=== PATIENT | male | born 1940 ===

== ENCOUNTER 2018-07-10 19:33 | Emergency (ER) | payer MEDICARE ==
[2018-07-10 20:28] VITALS: BP 176/88; PULSE 93; RESP 18; TEMP 98.7; O2SAT 95
[2018-07-10 20:38] LABS: URINE BILIRUBIN NEGATIVE (NEGATIVE); URINE BLOOD NEGATIVE (NEGATIVE); URINE CLARITY Clear (Clear); URINE COLOR Straw (YELLOW); URINE GLUCOSE (UA) NORMAL (Normal); URINE LEUKOCYTE ESTERASE TRACE Leu/uL (Negative); URINE PROTEIN NEGATIVE (NEGATIVE); URINE UROBILINOGEN NORMAL mg/dL (0.2-1.0)
--- NOTE | 2018-07-10 20:49 | C.PDOC ---
History Of Present Illness 77-year-old male presents to the ED for evaluation after having an episode of transient hematuria yesterday. Patient is concerned that this onset is something more ominous, stating his sister had a brief episode of hematuria and was diagnosed with urological cancer. Patient states he takes Flomax daily. He denies weight loss, urinary frequency. Time Seen by Provider: 07/10/18 20:06 Chief Complaint (Nursing): Male Genitourinary History Per: Patient History/Exam Limitations: no limitations Onset/Duration Of Symptoms: Hrs Current Symptoms Are (Timing): Still Present Associated Symptoms: Urinary Symptoms (hematuria ) Additional History Per: Patient Past Medical History Reviewed: Historical Data, Nursing Documentation, Vital Signs Vital Signs: Last Vital Signs Temp 98.7 F 07/10/18 19:54 Pulse 93 H 07/10/18 19:54 Resp 18 07/10/18 19:54 BP 176/88 H 07/10/18 19:54 Pulse Ox 95 07/10/18 19:54 Primary Care Provider: Fermín Rivera - Medical History PMH: HTN Denies: Chronic Kidney Disease Surgical History: Endoscopy Family History: States: Unknown Family Hx - Social History Hx Alcohol Use: No Hx Substance Use: No - Immunization History Hx Tetanus Toxoid Vaccination: No Hx Influenza Vaccination: Yes Hx Pneumococcal Vaccination: No Review Of Systems Genitourinary: Positive for: Hematuria. Negative for: Frequency Physical Exam - Physical Exam Appears: Non-toxic, No Acute Distress, Other (elderly male ) Skin: Normal Color, Warm, Dry Head: Atraumatic, Normacephalic Eye(s): bilateral: Normal Inspection Oral Mucosa: Moist Neck: Supple Chest: Symmetrical, No Deformity, No Tenderness Cardiovascular: Rhythm Regular, No Murmur Respiratory: Normal Breath Sounds, No Rales, No Rhonchi, No Wheezing Gastrointestinal/Abdominal: Soft, No Tenderness, No Guarding, No Rebound Male Genital: Other (light-colored, clear urine noted ) Extremity: Normal ROM, Capillary Refill (less than 2 seconds ) Neurological/Psych: Oriented x3, Normal Speech, Normal Cognition ED Course And Treatment - Laboratory Results Lab Results: Urine Color Straw (YELLOW) 07/10/18 20:31 Urine Clarity Clear (Clear) 07/10/18 20:31 Urine pH 6.0 (5.0-8.0) 07/10/18 20:31 Ur Specific [place] 1.006 (1.003-1.030) 07/10/18 20:31 Urine Protein Negative mg/dL (NEGATIVE) 07/10/18 20:31 Urine Glucose (UA) Normal mg/dL (Normal) 07/10/18 20:31 Urine Ketones Negative mg/dL (NEGATIVE) 07/10/18 20:31 Urine Blood Negative (NEGATIVE) 07/10/18 20:31 Urine Nitrate Negative (NEGATIVE) 07/10/18 20:31 Urine Bilirubin Negative (NEGATIVE) 07/10/18 20:31 Urine Urobilinogen Normal mg/dL (0.2-1.0) 07/10/18 20:31 Ur Leukocyte Esterase Trace Prashant/uL (Negative) 07/10/18 20:31 Urine WBC (Auto) 5 /hpf (0-5) 07/10/18 20:31 Urine RBC (Auto) 1 /hpf (0-3) 07/10/18 20:31 Lab Interpretation: Normal (UA neg.) O2 Sat by Pulse Oximetry: 95 (on RA ) Pulse Ox Interpretation: Normal Progress Note: Urinalysis ordered and reviewed. Bladder scan showed 0cc. Medical Decision Making Medical Decision Making: bladder scan ZERO has Flomax @ home to continue has f/u appt with [facility] in 2 days Disposition Doctor Will See Patient In The: Office Counseled Patient/Family Regarding: Studies Performed, Diagnosis - Disposition Referrals: Anthony Cardoza MD [Staff Provider] - Disposition: HOME/ ROUTINE Disposition Time: 20:48 Condition: GOOD Additional Instructions: Sigue Flomax diario Bladder Scan ZERO hoy Urinalysis NORMAL hoy Instructions: Blood in the Urine (Hematuria) in Adults Forms: [employer] (Ukrainian) Print Language: LAO - Clinical Impression Clinical Impression: Hematuria - Scribe Statement The provider has reviewed the documentation as recorded by the Scribe ([email or web address]) All medical record entries made by the Scribe were at my direction and personally dictated by me. I have reviewed the chart and agree that the record accurately reflects my personal performance of the history, physical exam, medical decision making, and the department course for this patient. I have also personally directed, reviewed, and agree with the discharge instructions and disposition.
== END 2018-07-10 21:10 | disposition home or self-care (01) ==
LOC: C.ER 19:33
DX: R31.9 Hematuria, unspecified (principal)